=== PATIENT | female | born 2000 | race Two or more races ===

== ENCOUNTER 2024-08-26 15:01 | Emergency (ER) | payer OTHER ==
[~2024-08-26] VITALS: Ht 154.9 cm; Wt 78.0 kg
[2024-08-26 20:23] LABS: BASO % 0.4 % (0.1-1.2); EOS # 0.28 (0.04-0.54); EOS % 2.9 % (0.7-7.0); HEMATOCRIT 39.9 % (34.1-44.9); HEMOGLOBIN 12.6 g/dL (11.2-15.7); LYMPH # 3.24 (1.18-3.74); LYMPH % 34.1 % (19.3-53.1); MEAN CORPUSCULAR HEMOGLOBIN 22.6 pg (25.6-32.2); MONO # 0.47 (0.24-0.82); MONO % 4.9 % (4.7-12.5); NEUT # 5.45 (1.56-6.13); NEUT % 57.5 % (34.0-71.1); PLATELET COUNT 293 K/uL (163-369); RED BLOOD COUNT 5.58 M/uL (3.93-5.22); RED CELL DISTRIBUTION WIDTH 14.9 % (11.6-14.4)
[2024-08-26 20:47] LABS: ALBUMIN 3.3 gm/dL (3.4-5.0); BILIRUBIN TOTAL 0.4 mg/dL (0.3-1.2); CALCIUM 9.3 mg/dL (8.5-10.1); CREATININE SERUM 0.53 mg/dL (0.55-1.02); GFR 140.55; POTASSIUM 4.02 mEq/L (3.5-5.1); TOTAL PROTEIN 7.3 gm/dL (6.4-8.2)
== END 2024-08-26 22:11 | disposition home or self-care (01) ==
LOC: ER 15:01
PROVIDERS: General Practice
DX: O20.8 Other hemorrhage in early pregnancy (principal); Z3A.01 Less than 8 weeks gestation of pregnancy; R10.2 Pelvic and perineal pain; R10.9 Unspecified abdominal pain